=== PATIENT | male | born 1975 | race Two or more races ===

== ENCOUNTER 2021-08-26 11:49 | Inpatient (IN) | payer SELFPAY ==
[~2021-08-26] VITALS: Ht 167.6 cm; Wt 70.0 kg
--- NOTE | 2021-08-26 12:49 | RAD ---
EXAM: AP, lateral and oblique views of the right knee DATE: 08/26/2021 12:05 PM INDICATION: Reason: R KNEE PAIN, FALL FROM HEIGHT / Spl. Instructions: / History: COMPARISON: No Prior FINDINGS/ IMPRESSION: There is acute nonspecific fracture of the lateral tibial plateau which can be further profiled by CT . Small right knee joint effusion. Mild deformity medial femoral condyle may represent osteochondral injury. Sclerotic focus distal tibia likely low-grade cartilaginous lesion. Electronically signed by: Graham Mckinney MD (08/26/2021 12:46 PM) [email or web address]
--- NOTE | 2021-08-26 13:05 | RAD ---
EXAM: 2 views right tibia/fibula 3 views right foot DATE: 08/26/2021 12:41 PM INDICATION: Reason: PROXIMAL FIBULAR TENDERNESS / Spl. Instructions: / History: . COMPARISON: No Prior FINDINGS/ IMPRESSION: Nondisplaced lateral tibial plateau fracture is seen. There is also a fibular neck fracture is nondis placed. No definite distal tibial or fibular fracture. No acute fracture is seen in the right foot. N o definite tarsometatarsal offset. Small ossicle at the calcaneocuboid joint, appears well-corticated .Forefoot soft tissue swelling is seen. Electronically signed by: Graham Mckinney MD (08/26/2021 1:03 PM) [id number]
--- NOTE | 2021-08-26 13:57 | PHYS DOC ---
Past Medical History Past Surgical History: No Surgical History General Adult EDM: Chief Complaint: MECHANICAL FALL HPI: HPI: Patient is a 46 year old male who presents with right knee pain. 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 Landed on his right leg. Had immediate right knee pain. He fell onto his outstretched hands and caught himself. Denies any upper extrem ity, neck, back, head, or chest injury. Denies any injury to the left leg. States that his right knee had swelling very quickly. Last p.o. intake was 6 AM this morning. His boss is accompanying him, and states that he will be bringing in Worker's Comp. forms Rates pain 04/02 Did not strike his head. No blood thinners. Review of Systems: Review of Systems: Constitutional: Denies fever or chills. [] Eyes: Denies change in visual acuity. [] HENT: Denies nasal congestion or sore throat. [] Respiratory: Denies cough or shortness of breath. [] Cardiovascular: Denies chest pain or edema. [] GI: Denies abdominal pain, nausea, vomiting, bloody stools or diarrhea. [] : Denies dysuria. [] Musculoskeletal: Reports right knee pain Integument: Denies rash. [] Neurologic: Denies headache, focal weakness or sensory changes. [] Endocrine: Denies polyuria or polydipsia. [] Lymphatic: Denies swollen glands. [] Psychiatric: Denies depression or anxiety. [] Heart Score: C/O Chest Pain: No Physical Exam: PE: Constitutional: Appears uncomfortable, but not in any distress. HENT: Normocephalic, atraumatic Eyes: conjunctiva normal, no discharge. [] Neck: Normal range of motion, no tenderness, supple, no stridor. [] Cardiovascular:Heart rate regular rhythm, no murmur [] Lungs & Thorax: Bilateral breath sounds clear to auscultation [] Abdomen: Bowel sounds normal, soft, no tenderness, no masses, no pulsatile masses. [] Skin: Warm, dry, no erythema, no rash. [] Back: No tenderness, no CVA tenderness. [] Extremities: Right knee with obvious effusion. Tenderness over the proximal fibula and tibia. No patellar or femur tenderness to palpation. Mild tenderness over the calcaneus. No medial or lateral malleoli or tenderness. Normal range of motion of the ankle. DP pulse 2+ on the right. No other evidence of deformities. Right elbow with mild skin abrasion. Normal range of motion of the other extremities. Neurologic: Alert and oriented X 3, normal motor function, normal sensory function, no focal deficits noted. [] Psychologic: Affect normal, judgement normal, mood normal. [] Current Patient Data: Vital Signs: Vital Signs Date Time Temp Pulse Resp B/P (MAP) Pulse Ox O2 Delivery O2 Flow Rate FiO2 08/26/21 12:12 99.5 94 16 138/83 (101) Room Air 98.0 99.5 EKG: EKG: [] Radiology/Procedures: Radiology/Procedures: [] Impression: [address] [address] IMAGING REPORT Signed PATIENT: XIOMARA ZAMUDIOACCOUNT: [id number] : 1975 LOCATION: ER AGE: 46 SEX: M EXAM STATUS: PRE ER ORD. PHYSICIAN: MERE ASENCIO MD REASON: PROXIMAL FIBULAR TENDERNESS PROCEDURE: TIBIA FIBULA RIGHT EXAM: 2 views right tibia/fibula 3 views right foot DATE: 08/26/2021 12:41 PM INDICATION: Reason: PROXIMAL FIBULAR TENDERNESS / Spl. Instructions: / History: . COMPARISON: No Prior FINDINGS/ IMPRESSION: Nondisplaced lateral tibial plateau fracture is seen. There is also a fibular neck fracture is nondisplaced. No definite distal tibial or fibular fracture. No acute fracture is seen in the right foot. No definite tarsometatarsal offset. Small ossicle at the calcaneocuboid joint, appears well-corticated.Forefoot soft tissue swelling is seen. Electronically signed by: Graham Rosales MD (08/26/2021 1:03 PM) [email or web address] DICTATED and SIGNED BY: GRAHAM ROSALES MD DATE: 08/26/21 [id number] [address] IMAGING REPORT Signed PATIENT: EDITH ZAMUDIO: [id number] : 1975 LOCATION: ER AGE: 46 SEX: M EXAM STATUS: PRE ER ORD. PHYSICIAN: MERE ASENCIO MD REASON: R KNEE PAIN, FALL FROM HEIGHT PROCEDURE: KNEE RIGHT 3V EXAM: AP, lateral and oblique views of the right knee DATE: 08/26/2021 12:05 PM INDICATION: Reason: R KNEE PAIN, FALL FROM HEIGHT / Spl. Instructions: / History: COMPARISON: No Prior FINDINGS/ IMPRESSION: There is acute nonspecific fracture of the lateral tibial plateau which can be further profiled by CT. Small right knee joint effusion. Mild deformity medial femoral condyle may represent osteochondral injury. Sclerotic focus distal tibia likely low-grade cartilaginous lesion. Electronically signed by: Graham Rosales MD (08/26/2021 12:46 PM) [email or web address] DICTATED and SIGNED BY: GRAHAM ROSALES MD DATE: 08/26/21 [id number] [facility] [address] [place] [address] IMAGING REPORT Signed PATIENT: XIOMARA ZAMUDIOACCOUNT: [id number] : 1975 LOCATION: ER AGE: 46 SEX: M EXAM STATUS: REG ER ORD. PHYSICIAN: MERE ASENCIO MD REASON: tibial plateau and proximal fibula fracture PROCEDURE: CT LOWER EXTREMITY WO RIGHT Exam Date: 08/26/2021 2:[address] LOWER RIGHT EXTREMITY WITHOUT CONTRAST Indication: Reason: tibial plateau and proximal fibula fracture / Spl. Instructions: / History: . Technique: CT scan of the right knee was performed without intravenous contrast. One or more of the following dose reduction techniques were utilized: *Automated exposure control (AEC) *Adjustment of mA and/or kV according to patient size *Use of iterative reconstruction technique *CT scan done according to ALARA, or ALARA/IMAGE GENTLY COMPARISON: Radiographs from August 26, 2021. FINDINGS: Again seen is an acute comminuted nondisplaced fracture of the posterior aspect of the lateral tibial plateau with longitudinal fracture lucencies extending from the posterior articular surface to the diametaphysis. There is no significant depression of the articular surface. Also seen again is a nondisplaced acute comminuted fracture of the fibular head. There is diffuse soft tissue edema around the knee. Visualized muscles demonstrate normal CT appearances. IMPRESSION: Nondisplaced acute fractures of the lateral tibial plateau and fibular head as described. Electronically signed by: Subhash Pacheco MD (08/26/2021 2:58 PM) [id number] DICTATED and SIGNED BY: SUBHASH PACHECO MD DATE: 08/26/21 [id number] 0 Course & Med Decision Making: Course & Med Decision Making Pertinent Labs and Imaging studies reviewed. (See chart for details) Patient 46-year-old male who presents with right knee pain after falling 5-6 feet onto his right leg. Obvious traumatic knee effusion on exam. X-ray shows lateral tibial plateau fracture and proximal fibular fracture. Discussed with Dr. Rayo, of ortho, who requests CT for further evaluation. [address] with orthopedist. Recommends knee immobilization, nonweightbearing on the right leg, and hospitalization. Patient is agreeable. NPO at midnight. 1521 Dragon Disclaimer: Dragon Disclaimer: This electronic medical record was generated, in whole or in part, using a voice recognition dictation system. Departure Departure Impression: Primary Impression: Tibial plateau fracture Additional Impression: Fracture of proximal end of fibula Disposition: ADMITTED INPATIENT Admitting Physician: CLINTON (Brian) Condition: STABLE Referrals: NO PCP (PCP) MERE ASENCIO MD Aug 26, 2021 13:57
[2021-08-26] MEDS ORDERED: MORPHINE SULFATE 4 MG/ML INJ. ONE (14:44)
[2021-08-26] MEDS ORDERED: MORPHINE SULFATE 4 MG/ML INJ. IVP ONE (15:00)
--- NOTE | 2021-08-26 15:00 | RAD ---
Exam Date: 08/26/2021 2:[address] LOWER RIGHT EXTREMITY WITHOUT CONTRAST Indication: Reason: tibial plateau and proximal fibula fracture / Spl. Instructions: / History: . Technique: CT scan of the right knee was performed without intravenous contrast. One or more of the following dose reduction techniques were utilized: *Automated exposure control (AEC) *Adjustment of mA and/or kV according to patient size *Use of iterative reconstruction technique *CT scan done according to ALARA, or ALARA/IMAGE GENTLY COMPARISON: Radiographs from August 26, 2021. FINDINGS: Again seen is an acute comminuted nondisplaced fracture of the posterior aspect of the lateral tibial plateau with longitudinal fracture lucencies extending from the posterior articular surface to the d iametaphysis. There is no significant depression of the articular surface. Also seen again is a nondisplaced acute comminuted fracture of the fibular head. There is diffuse soft tissue edema around the knee. Visualized muscles demonstrate normal CT appeara nces. IMPRESSION: Nondisplaced acute fractures of the lateral tibial plateau and fibular head as described. Electronically signed by: Josh Pacheco MD (08/26/2021 2:58 PM) [id number]
--- NOTE | 2021-08-26 18:25 | HP ---
DATE OF SERVICE: 08/26/2021 ADMIT DATE: 08/26/2021 CHIEF COMPLAINT: Fall with right leg pain. HISTORY OF PRESENT ILLNESS: The patient is a pleasant 46-year-old healthy male. 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 He fell off. He complains of leg pain. We did some imaging. He has got a proximal fibular fracture and a tibial plateau fracture. I discussed the case with ER physician. We are going to admit the patient with consultation to Orthopedics. PAST MEDICAL HISTORY: Benign. ALLERGIES: None. FAMILY HISTORY: Diabetes. SOCIAL HISTORY: Does not drink, smoke or take drugs. MEDICATIONS: Reviewed. Please refer to the MRAD. REVIEW OF SYSTEMS: GENERAL: No history of weight change, weakness or fevers. SKIN: No bruising, hair changes or rashes. EYES: No blurred, double or loss of vision. NOSE AND THROAT: No history of nosebleeds, hoarseness or sore throat. HEART: No history of palpitations, chest pain or shortness of breath on exertion. LUNGS: Denies cough, hemoptysis, wheezing or shortness of breath. GASTROINTESTINAL: Denies changes in appetite, nausea, vomiting, diarrhea or constipation. GENITOURINARY: No history of frequency, urgency, hesitancy or nocturia. NEUROLOGIC: Denies history of numbness, tingling, tremor or weakness. PSYCHIATRIC: No history of panic, anxiety or depression. ENDOCRINE: No history of heat or cold intolerance, polyuria or polydipsia. EXTREMITIES: He complains of right leg pain. PHYSICAL EXAMINATION: VITALS: Within normal limits and are stable. GENERAL: No apparent distress. Alert and oriented. HEENT: Normal cephalic atraumatic, external auditory canals are patent. EYES: Extraocular muscles are intact, pupils are equally round and reactive to light and accommodation. MUSCULOSKELETAL: Well developed, well nourished, good range of motion. ENDOCRINE: No thyromegaly was palpated, LYMPHATICS: No cervical chain or axillary nodes were noted. HEMATOPOIETIC: No bruising. NECK: Supple, no JVD, no thyromegaly was noted. LUNGS: Clear to auscultation in all lung michelle without rhonchi or wheezing. HEART: RRR, S1, S2 present. Peripheral pulses intact, no obvious murmurs were noted. ABDOMEN: Soft, nontender. Positive bowel sounds no organomegaly, normal bowel sounds. EXTREMITIES: The right leg has swelling at the knee. NEUROLOGIC: Normal speech, normal tone. A and O x 3, moves all extremities, no obvious focal deficits. PSYCHIATRIC: Normal affect, normal mood. Stable. SKIN: No ulcerations or rashes, good skin turgor, no jaundice. VASCULAR: Good capillary refill, neurovascular bundle appears to be intact. ASSESSMENT AND PLAN: Fall with tibial plateau fracture and proximal fibular fracture. We notified Orthopedics. I do not think they are going to see him until tomorrow, so we will let him eat and make him n.p.o. after midnight. P.r.n. pain meds, home meds. DVT prophylaxis. Full code. WINIFRED/ENEIDA DR: WINIFRED/ryland TID: [id number]
[2021-08-26 19:00] VITALS: BP 129/77
[2021-08-26 23:00] VITALS: BP 120/61
[2021-08-26] MEDS ORDERED: ATOR20TA58 PO (23:14)
[2021-08-26] MEDS ORDERED: METF10007 PO (23:14)
[2021-08-26] MEDS ORDERED: LISI5TAB15 PO (23:14)
[2021-08-27 03:00] VITALS: BP 133/76
[2021-08-27] MEDS: MORPHINE SULFATE 4 MG/ML INJ. IV PRN ×2 (03:04→07:36)
[2021-08-27 07:00] VITALS: BP 134/84
--- NOTE | 2021-08-27 10:36 | PDOC2 ---
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 He noted immediate pain and inability to ambulate and was brought into the emergency department. He was found to have a nondisplaced lateral tibial plateau fracture and associated proximal fibular fracture. He was admitted for care of this. He is asking to go home today. He is complaining of knee pain, it is tolerable. He has noted some swelling around his knee. He denies any pain in his calf or elsewhere in his body at this time. The knee pain does not really radiate. Past Medical History Cardiovascular: No pertinent hx Pulmonary: No pertinent hx Past Surgical History Past Surgical History: No pertinent history Family History Family History: Heart Disease Social History No ALCOHOL: occassional Lives: with Family Current Problem List Problem List Problems Medical Problems: (1) Fracture of proximal end of fibula Status: Acute (2) Tibial plateau fracture Status: Acute Current Medications Current Medications Current Medications Morphine Sulfate (Morphine Sulfate) 4 mg 1X ONCE IVP Last administered on 08/26/21at 14:47; Start 08/26/21 at 15:00; Stop 08/26/21 at 15:01; Status DC Morphine Sulfate (Morphine Sulfate) 4 mg STK-MED ONCE .ROUTE ; Start 08/26/21 at 14:44; Stop 08/26/21 at 14:44; Status DC Morphine Sulfate (Morphine Sulfate) 4 mg PRN Q2HR PRN IV SEVERE PAIN 7-10 Last administered on 08/27/21at 07:36; Start 08/26/21 at 21:00 Active Scripts Active Reported Lisinopril 5 Mg Tablet 5 Mg PO DAILYWSUP Metformin Hcl 1,000 Mg Tablet 1,500 Mg PO DAILYWSUP Atorvastatin Calcium 20 Mg Tablet 1 Tab PO DAILYBFRLUN Allergies Allergies: Coded Allergies: No Known Drug Allergies (Unverified , 08/26/21) ROS General: No: Chills, Night Sweats, Fatigue, Malaise, Appetite, Other PSYCHOLOGICAL ROS: No: Anxiety, Behavioral Disorder, Concentration difficultie, Decreased libido, Depression, Disorientation, Hallucinations, Hostility, Irritablity, Memory difficulties, Mood Swings, Obsessive thoughts, Physical abuse, Sexual abuse, Sleep disturbances, Suicidal ideation, Other Eyes: No Blurry vision, No Decreased vision, No Double vision, No Dry eyes, No Excessive tearing, No Eye Pain, No Itchy Eyes, No Loss of vision, No Photophobia, No Scotomata, No Uses contacts, No Uses glasses, No Other HEENT: No: Heacaches, Visual Changes, Hearing change, Nasal congestion, Nasal discharge, Oral lesions, Sinus pain, Sore Throat, Epistaxis, Sneezing, Snoring, Tinnitus, Vertigo, Vocal changes, Other ALLERGY AND IMMUNOLOGY: No: Hives, Insect Bite Sensitivity, Itchy/Watery Eyes, Nasal Congestion, Post Nasal Drip, Seasonal Allergies, Other Hematological and Lymphatic: No: Bleeding Problems, Blood Clots, Blood Transfusions, Brusing, Night Sweats, Pallor, Swollen Lymph Nodes, Other Respiratory: No: Cough, Hemoptysis, Orthopnea, Pleuritic Pain, Shortness of breath, SOB with excertion, Sputum Changes, Stridor, Tachypnea, Wheezing, Other Cardiovascular: No Chest Pain, No Palpitations, No Orthopnea, No Paroxysmal Noc. Dyspnea, No Edema, No Lt Headedness, No Other Gastrointestinal: No Nausea, No Vomiting, No Abdominal Pain, No Diarrhea, No Constipation, No Melena, No Hematochezia, No Other Genitourinary: No Dysuria, No Frequency, No Incontinence, No Hematuria, No Ret ention, No Discharge, No Urgency, No Pain, No Flank Pain, No Other, No , No , No , No , No , No , No Musculoskeletal: Yes Joint Pain, Yes Joint Stiffness Neurological: No Behavorial Changes, No Bowel/Bladder ControlChng, No Confusion, No Dizziness, No Gait Disturbance, No Headaches, No Impaired Coord/balance, No Memory Loss, No Numbness/Tingling, No Seizures, No Speech Problems, No Tremors, No Visual Changes, No Weakness, No Other Skin: No Dry Skin, No Eczema, No Hair Changes, No Lumps, No Mole Changes, No Mottling, No Nail Changes, No Pruritus, No Rash, No Skin Lesion Changes, No Other, No Acne Physical Exam General: Alert, Oriented X3, No acute distress HEENT: Atraumatic, EOMI Lungs: Other (Respirations are unlabored with symmetric chest rise) Heart: Regular rate Abdomen: Soft, No tenderness Extremities: No edema, Normal pulses Skin: No rashes, No breakdown Neuro: Normal speech, Strength at 5/5 X4 ext, Sensation intact Psych/Mental Status: Mental status NL, Mood NL MUSCULOSKELETAL: Other (He has an effusion at his knee. He has tenderness around his knee. Compartments are all soft. No pain with passive range of motion. EHL and FHL are 5 out of 5.) Vitals VITALS Vital Signs Date Time Temp Pulse Resp B/P (MAP) Pulse Ox O2 Delivery O2 Flow Rate FiO2 08/27/21 07:36 Room Air 08/27/21 07:00 98.2 92 18 134/84 (101) 96 98.2 08/26/21 12:12 98.0 Images Images X-rays were interpreted by myself. Report was reviewed. CAT scan was also interpreted by myself. Nondisplaced lateral tibial plateau fracture with associated proximal fibular fracture Assessment/Plan Assessment/Plan Closed right tibial plateau fracture, nondisplaced I did discuss his injury and answered he and his family's questions. He will be nonweightbearing for 6 weeks. We will get him fit with a hinged knee brace and allow progressive range of motion. As far as going home today, I am okay with that as long as he is comfortable and demonstrates an ability to get around well with crutches. I would recommend DVT prophylaxis as he is hoping to travel very soon. KARAN MARIANO II, MD Aug 27, 2021 10:35
[2021-08-27 11:00] VITALS: BP 117/80
[2021-08-27] MEDS ORDERED: oxyCODONE/APAP 5/325 1 TAB TABLET PO ONE (15:15)
[2021-08-27] MEDS ORDERED: KETOROLAC 30 MG/ML VIAL. IVP ONE (15:15)
[2021-08-27] MEDS ORDERED: IBUP-1060 PO (15:34)
[2021-08-27] MEDS ORDERED: OXYC-325 PO ×2 (15:34→16:02)
[2021-08-27] MEDS ORDERED: APIX5TAB PO (16:01)
--- NOTE | 2021-08-27 16:25 | PDOC3 ---
Discharge Summary Visit Information Date of Admission: Aug 26, 2021 Date of Discharge: Aug 27, 2021 Final Diagnosis Fall with tibial plateau fracture and proximal fibular fracture. htn lipids Problems Medical Problems: (1) Fracture of proximal end of fibula Status: Acute (2) Tibial plateau fracture Status: Acute Brief Hospital Course Allergies Allergies Coded Allergies Type Severity Reaction Last Updated Verified No Known Drug Allergies 08/26/21 No Vital Signs Vital Signs Date Time Temp Pulse Resp B/P (MAP) Pulse Ox O2 Delivery O2 Flow Rate FiO2 08/27/21 16:16 Room Air 08/27/21 11:00 97.7 92 117/80 (92) 97 98.0 97.7 08/27/21 07:00 18 Brief Hospital Course Mr. Santiago is a 46 old male, admit after 6 foot fall, right leg fx, , brace placed in ER< new Hang[employer] brace placed for DC, hinge knee 0-30 Dr. Girma walter f/u primary care, crutches, Discharge Information Condition at Discharge: Improved Follow Up: Weeks Disposition/Orders: D/C to Home Scheduled Apixaban (Eliquis) 5 Mg Tablet, 5 MG PO BID for DVT proph, #60 Prescribed by: LEONIDAS GONZALEZ on 08/27/21 1601 Atorvastatin Calcium (Atorvastatin Calcium) 20 Mg Tablet, 1 TAB PO DAILYBFRLUN for Cholesterol, #30 Ref 5 (Reported) Entered as Reported by: QUE REDDY RN on 08/26/212313 Last Action: New Order on 08/26/212313 by QUE REDDY RN Ibuprofen (Ibuprofen) 800 Mg Tablet, 800 MG PO BID for pain, #14 Prescribed by: LEONIDAS GONZALEZ on 08/27/21 1534 Lisinopril (Lisinopril) 5 Mg Tablet, 5 MG PO DAILYWSUP for FOR HYPERTENSION, #30 Ref 0 (Reported) Entered as Reported by: QUE REDDY RN on 08/26/212313 Last Action: New Order on 08/26/212313 by QUE REDDY RN Metformin Hcl (Metformin Hcl) 1,000 Mg Tablet, 1,500 MG PO DAILYWSUP for ANTI- DIABETIC, Ref 0 (Reported) Entered as Reported by: QUE REDDY RN on 08/26/212313 Last Action: New Order on 08/26/212313 by QUE MAUREEN, RN Scheduled PRN Oxycodone HCl/Acetaminophen (Percocet 5-325 mg Tablet) 1 Each Tablet, 1 TAB PO PRN TID PRN for PAIN MDD 3 Tablet(s), #22 Ref 0 Prescribed by: LEONIDAS GONZALEZ on 08/27/21 1602 Justicifation of Admission Dx: Justifications for Admission: Justification of Admission Dx: LEONIDAS Anderson MD Aug 27, 2021 16:25
== END 2021-08-27 17:12 | disposition home or self-care (01) | DRG 563 ==
LOC: ER 11:49 → 4 NORTH 15:24
PROVIDERS: ADMIT Internal Medicine; ATTEND Internal Medicine
DX: S82.144A Nondisplaced bicondylar fracture of right tibia, initial encounter for closed fracture (principal); S82.839A Other fracture of upper and lower end of unspecified fibula, initial encounter for closed fracture; Z83.3 Family history of diabetes mellitus; W18.39XA Other fall on same level, initial encounter; I10 Essential (primary) hypertension; Y93.89 Activity, other specified; Y92.89 Other specified places as the place of occurrence of the external cause; Y99.8 Other external cause status
CPT/HCPCS: 73562; 73590; 73630; 73700; 96374; J1885; J2270; 97116-GP; 99285-25; G0378